=== PATIENT | female | born 1985 | race Two or more races ===

== ENCOUNTER 2024-07-26 13:45 | Inpatient (IN) | payer OTHER ==
[~2024-07-26] VITALS: Ht 157.5 cm; Wt 80.7 kg
[2024-08-08] VITALS (7 sets, daily range): BP systolic 110–149; BP diastolic 66–92
[2024-08-08] MEDS ORDERED: PRENATAL TABLE1 EAC1 PO (08:54)
[2024-08-08] MEDS ORDERED: IRON236 MG PO (08:54)
[2024-08-08] MEDS ORDERED: ADULT LOW DOSE81 M1 PO (08:54)
[2024-08-08] MEDS ORDERED: RINGERS SOLUTION,LACTATED 1,000 ML IV SCH (09:00)
[2024-08-08] MEDS ORDERED: CHLORHEXIDINE GLUCONATE 120 ML BOTTLE TOP ONE ×2 (09:35→12:30)
[2024-08-08] MEDS ORDERED: LIDOCAINE HCL 1% 10ML VIAL ONE (09:35)
[2024-08-08] MEDS ORDERED: OXYTOCIN 20 UNITS/1000ML RL PIGGYBAG IV ONE (09:35)
[2024-08-08] MEDS ORDERED: ERYTHROMYCIN BASE OPHT 1GM EACH TUBE OP ONE ×2 (09:35→12:15)
[2024-08-08 09:44] LABS: HEMATOCRIT 35.7 % (36.0-45.00); HEMOGLOBIN 12.1 g/dL (12.0-15.00); MEAN CELL VOLUME 84.5 fL (80.00-100.00); MEAN CORPUSCULAR HEMOGLOBIN 28.6 pg (27.00-32.0); MEAN CORPUSCULAR HGB CONC 33.9 g/dl (32.0-36.0); PLATELET COUNT 200 K/uL (150-450); RED BLOOD COUNT 4.22 M/uL (4.00-6.00); RED CELL DISTRIBUTION WIDTH 16.2 % (11.5-14.5)
[2024-08-08 09:46] LABS: PH,URINE 5.5 (5.0-8.0); URINE APPEARANCE Clear; URINE BILIRRUBIN Negative (NEGATIVE); URINE BLOOD Large; URINE COLOR Yellow; URINE GLUCOSE Negative (NEGATIVE); URINE LEUKOCYTE Moderate; URINE NITRATE Negative; URINE PROTEIN Trace (NEGATIVE); URINE UROBILINOGEN 0.2 E.U./dl
[2024-08-08 09:49] LABS: URINE BACTERIA 130.9 uL (0.0-1933); URINE EPITHELIAL CELLS 23.2 uL (0.0-38.8); URINE RBC 1199.2 uL (0.0-20.8); URINE WBC 168.4 uL (0.0-23.2)
[2024-08-08 09:56] LABS: INR < 0.93; PARTIAL THROMBOPLASTIN TIME 29.7 SECONDS (22.0-34.0); PROTHROMBIN TIME 10.2 SECONDS (9.0-11.5)
[2024-08-08 10:26] LABS: URINE CAST 0.44 uL (0.0-1.40); URINE KETONE 40 (NEGATIVE)
[2024-08-08 10:54] LABS: ALBUMIN 2.4 gm/dL (3.4-5.0); BILIRUBIN TOTAL 0.37 mg/dL (0.3-1.2); CREATININE SERUM 0.43 mg/dL (0.55-1.02); GFR 165.22; GLOBULINA 3.9 G/DL (2.4-3.5); POTASSIUM 3.82 mEq/L (3.5-5.1); TOTAL PROTEIN 6.3 gm/dL (6.4-8.2)
[2024-08-08] MEDS ORDERED: LIDOCAINE HCL 1% 10ML VIAL PERCUT ONE (12:15)
[2024-08-08] MEDS ORDERED: OXYTOCIN 1,000 ML IV SCH (12:15)
[2024-08-08] MEDS ORDERED: IBUprofen 600 MG TABLET PO SCH (14:00)
[2024-08-09 01:35] VITALS: BP 129/79
[2024-08-09 08:00] VITALS: BP 117/78
[2024-08-09 16:24] VITALS: BP 114/67
[2024-08-09 20:45] VITALS: BP 106/68
[2024-08-10 00:07] VITALS: BP 113/67
[2024-08-10 09:02] VITALS: BP 120/60
== END 2024-08-10 14:19 | disposition home or self-care (01) | DRG 807 ==
LOC: LDR 08-08 08:47 → OB/GYN 08-08 14:00
PROVIDERS: Student in an Organized Health Care Education/Training Program; ADMIT Specialist; ATTEND Specialist
PROC: 10E0XZZ Delivery of Products of Conception, External Approach (ICD-10-PCS; principal; 2024-08-08)
PROC: 0KQM0ZZ Repair Perineum Muscle, Open Approach (ICD-10-PCS; 2024-08-08)
PROC: 0UQMXZZ Repair Vulva, External Approach (ICD-10-PCS; 2024-08-08)
PROC: 4A1HXCZ Monitoring of Products of Conception, Cardiac Rate, External Approach (ICD-10-PCS; 2024-08-08)
DX: O70.1 Second degree perineal laceration during delivery (principal); O71.82 Other specified trauma to perineum and vulva; O69.81X0 Labor and delivery complicated by cord around neck, without compression, not applicable or unspecified; Z3A.39 39 weeks gestation of pregnancy; Z37.0 Single live birth